=== PATIENT | male | born 2000 | race Hispanic/Latino ===

== ENCOUNTER 2025-01-08 14:56 | Emergency (ER) | payer OTHER ==
[~2025-01-08] VITALS: Ht 172.7 cm; Wt 67.0 kg
[2025-01-08] MEDS ORDERED: AMITRIPTYLINE H25 MG PO (15:13)
[2025-01-08 17:25] VITALS: BP 145/93
== END 2025-01-08 17:25 | disposition home or self-care (01) ==
LOC: ED 14:56
DX: S09.90XA Unspecified injury of head, initial encounter (principal); Y04.8XXA Assault by other bodily force, initial encounter
CPT/HCPCS: 70450; 99284-25

== ENCOUNTER 2025-01-19 18:36 | Emergency (ER) | payer OTHER ==
[~2025-01-19] VITALS: Ht 172.7 cm; Wt 67.4 kg
[~2025-01-19 18:36] MED LIST: AMITRIPTYLINE H25 MG PO
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
[2025-01-19] MEDS ORDERED: KETOROLAC TROMETHAMINE 60 MG/2 ML VIAL IM ONE (19:45)
[2025-01-19] MEDS ORDERED: ONDANSETRON 4 MG TAB ODT SL ONE (19:45)
[2025-01-19] MEDS ORDERED: AMOX TR-K CLV1 EAC1 PO (20:57)
[2025-01-19] MEDS ORDERED: AMOXICILLIN/CLAVULANATE K 875 MG HOME.PACK PO ONE (21:00)
[2025-01-19 21:12] VITALS: BP 119/67
== END 2025-01-19 21:21 | disposition home or self-care (01) ==
LOC: ED 18:36
DX: S02.2XXA Fracture of nasal bones, initial encounter for closed fracture (principal); S02.31XA Fracture of orbital floor, right side, initial encounter for closed fracture; S01.112A Laceration without foreign body of left eyelid and periocular area, initial encounter; Y04.8XXA Assault by other bodily force, initial encounter
CPT/HCPCS: 70450; 70486; 72125; 96372; 99284-25; A9270; J1885